=== PATIENT | female | born 1960 | race Caucasian/White ===

== ENCOUNTER 2020-11-25 10:17 | Outpatient (CLI) | payer OTHER ==
--- NOTE | 2020-11-25 10:42 | RAD ---
EXAM: 3 views of the left ankle HISTORY: Ankle pain COMPARISON: None FINDINGS: 3 views of the left ankle shows no evidence of acute fracture or dislocation. A well-cortic ated ossific fragment adjacent to the lateral malleolus is likely sequelae from remote trauma. Mild lateral soft tissue swelling is seen. No degenerative changes are present. IMPRESSION: No evidence of acute osseous abnormality.
== END 2020-11-25 10:18 | disposition home or self-care (01) ==
LOC: BICRAD 10:17
PROVIDERS: ATTEND Family Medicine
DX: M25.572 Pain in left ankle and joints of left foot (principal)

== ENCOUNTER 2021-07-19 17:57 | Observation (INO) | payer OTHER ==
[~2021-07-19 17:57] MED LIST: Iopamidol-370 76% 500 ML 1 ML ONE
[2021-07-19 18:53] LABS: #Basophils 0.1 thou/uL (0.0-0.2); #Eosinphils 0.1 thou/uL (0.0-0.7); #Lymphocytes 2.4 thou/uL (1.20-3.40); #Monocytes 0.7 thou/uL (0.11-0.59); #Neutrophils 4.3 thou/uL (1.40-6.50); %Basophils 0.8 % (0.0-1.0); %Eosinophils 1.7 % (0.0-10.0); %Lymphocytes 31.3 % (21.0-51.0); %Monocytes 9.4 % (0.0-10.0); %Neutrophils 56.9 % (42.0-75.0); Hemoglobin 13.2 g/dL (12.0-16.0); Mean Corpuscular HGB CONC 33.5 g/dL (32.0-36.0); Mean Corpuscular Hemoglobin 29.7 pg (27.0-31.0); Mean Corpuscular Volume 88.5 fL (78.0-98.0); Mean Platelet Volume 9.2 fL (7.4-10.4); Platelet Count 166 thou/uL (130-400); RBC Distribution Width 13.5 % (11.5-14.5); Red Blood Cell (RBC) Count 4.44 mill/uL (4.20-5.40); White Blood Cell (WBC) Count 7.6 thou/uL (4.8-10.8)
[2021-07-19 19:22] LABS: ALT (SGPT) 12 U/L (8-55); AST (SGOT) 16 U/L (5-34); Albumin 3.8 g/dL (3.4-4.8); Alkaline Phosphatase 65 U/L (40-110); Anion Gap 14 mmol/L (10-20); BUN (Urea Nitrogen) 17 mg/dL (9.8-20.1); Bilirubin, Total 0.6 mg/dL (0.2-1.2); Calc. Creatinine Clearance 0 mL/min (70-130); Calcium 9.3 mg/dL (7.8-10.44); Carbon Dioxide 23 mmol/L (23-31); Chloride 106 mmol/L (98-107); Glucose 149 mg/dL (80-115); Potassium 4.2 mmol/L (3.5-5.1); Protein, Total 6.8 g/dL (5.8-8.1); Sodium 139 mmol/L (136-145)
[2021-07-19] MEDS ORDERED: Aspirin Chewable 81 MG TAB ONE (20:19)
[2021-07-19] MEDS ORDERED: Nitroglycerin 2% Ointment 1 INCH/1 GM Packet ONE (21:54)
[2021-07-19 23:00] LABS: Troponin I Less than 0.010 ng/mL (< 0.028)
[2021-07-20] MEDS ORDERED: Ondansetron PF 4 MG/2 ML Vial IVP PRN ×2 (00:15→02:31)
[2021-07-20] MEDS ORDERED: Ondansetron ODT 4 MG TAB SL PRN (00:15)
[2021-07-20] MEDS ORDERED: Acetaminophen 325 MG TAB PO PRN ×2 (00:15→02:31)
[2021-07-20 02:13] LABS: Troponin I Less than 0.010 ng/mL (< 0.028)
[2021-07-20] MEDS ORDERED: Nitroglycerin 0.4 MG TAB (25 Tab Bottle) SL PRN (02:31)
[2021-07-20] MEDS ORDERED: hydrALAZINE 20 MG/ML VIAL SLOW IVP PRN (02:34)
[2021-07-20] MEDS ORDERED: Dextrose 5% in Water 1,000 ML IV PRN (03:46)
[2021-07-20] MEDS ORDERED: Dextrose 50% Abboject 50 ML SYRINGE SLOW IVP PRN (03:46)
[2021-07-20] MEDS ORDERED: HumaLOG 300 UNITS/3 ML VIAL SC PRN ×2 (03:46)
[2021-07-20 05:37] LABS: #Basophils 0.1 thou/uL (0.0-0.2); #Eosinphils 0.2 thou/uL (0.0-0.7); #Lymphocytes 2.4 thou/uL (1.20-3.40); #Monocytes 0.8 thou/uL (0.11-0.59); #Neutrophils 3.8 thou/uL (1.40-6.50); %Basophils 0.7 % (0.0-1.0); %Eosinophils 2.6 % (0.0-10.0); %Lymphocytes 33.1 % (21.0-51.0); %Monocytes 11.2 % (0.0-10.0); %Neutrophils 52.4 % (42.0-75.0); Hemoglobin 12.7 g/dL (12.0-16.0); Mean Corpuscular Hemoglobin 30.1 pg (27.0-31.0); Mean Corpuscular Volume 88.6 fL (78.0-98.0); Mean Platelet Volume 9.3 fL (7.4-10.4); Platelet Count 143 thou/uL (130-400); RBC Distribution Width 13.3 % (11.5-14.5); Red Blood Cell (RBC) Count 4.21 mill/uL (4.20-5.40); White Blood Cell (WBC) Count 7.2 thou/uL (4.8-10.8)
[2021-07-20 05:51] LABS: Anion Gap 14 mmol/L (10-20); BUN (Urea Nitrogen) 14 mg/dL (9.8-20.1); Calc. Creatinine Clearance 116 mL/min (70-130); Calcium 9.1 mg/dL (7.8-10.44); Carbon Dioxide 25 mmol/L (23-31); Cardiac Risk 3.8 (Less than 4.5); Chloride 107 mmol/L (98-107); Cholesterol 150 mg/dl (< 200 Desired); Glucose 93 mg/dL (80-115); HDL Cholesterol 40 mg/dL (>60 Neg Risk); LDL Cholesterol, Calculated 85 mg/dL; Potassium 4.5 mmol/L (3.5-5.1); Sodium 141 mmol/L (136-145); Triglycerides 123 mg/dL (Less than 150)
[2021-07-20] MEDS: Enoxaparin Sodium 40 MG/0.4 ML SYRINGE SC SCH (08:33)
[2021-07-20 12:39] LABS: SARS-CoV-2 PCR by NAA Not Detected (NotDetected)
[2021-07-21 06:08] VITALS: BMI 47.8
[2021-07-21 07:55] VITALS: TEMP 98.3
[2021-07-21] MEDS ORDERED: Aspirin 81 mg Enteric Coated Tablet PO SCH (09:00)
[2021-07-21] MEDS ORDERED: FLUoxetine HCl 20 MG CAP PO SCH (09:00)
[2021-07-21] MEDS ORDERED: Lisinopril 20 MG TAB PO SCH (09:00)
[2021-07-21] MEDS: Enoxaparin Sodium 40 MG/0.4 ML SYRINGE SC SCH (10:02)
[2021-07-21 15:44] VITALS: BP 101/64
[2021-07-21] MEDS ORDERED: Rosuvastatin 20 MG TAB PO SCH (21:00)
[2021-07-23] MEDS ORDERED: FLU VACC QS2021-22(6MOS UP)/PF 60 MCG/0.5 ML SYRINGE IM ONE (09:00)
== END 2021-07-21 18:10 | disposition home or self-care (01) ==
LOC: ERS 17:57 → 2SW 22:11
PROVIDERS: ADMIT Internal Medicine; ATTEND Internal Medicine Geriatric Medicine
DX: R07.89 Other chest pain (principal); R06.09 Other forms of dyspnea; E11.9 Type 2 diabetes mellitus without complications; I10 Essential (primary) hypertension; E78.5 Hyperlipidemia, unspecified; E66.9 Obesity, unspecified; Z68.42 Body mass index [BMI] 45.0-49.9, adult; Z87.891 Personal history of nicotine dependence; Z79.4 Long term (current) use of insulin; Z79.82 Long term (current) use of aspirin; Z79.84 Long term (current) use of oral hypoglycemic drugs; Z79.899 Other long term (current) drug therapy; Z20.822 Contact with and (suspected) exposure to COVID-19
CPT/HCPCS: 36415; 36416; 71045; 71275; 78452; 80048; 80053; 80061; 84443; 84484; 85025; 93005; 93017; 96372; A9500; G0378; J0153; J1650; Q9967; U0003; U0005

== ENCOUNTER 2022-01-19 07:43 | Outpatient (CLI) | payer OTHER | END 2022-01-19 07:44 | disposition home or self-care (01) | LOC: BICMAMMO 07:43 | PROVIDERS: ATTEND Family Medicine | DX: Z12.31 Encounter for screening mammogram for malignant neoplasm of breast (principal) | CPT/HCPCS: 77063; 77067 ==

== ENCOUNTER 2022-11-23 15:11 | Outpatient (CLI) | payer OTHER | END 2022-11-23 15:12 | disposition home or self-care (01) | LOC: BICRAD 15:11 | PROVIDERS: ATTEND Nurse Practitioner Family | DX: M25.521 Pain in right elbow (principal) ==

== ENCOUNTER 2022-12-06 08:10 | Outpatient (CLI) | payer OTHER | END 2022-12-06 08:11 | disposition home or self-care (01) | LOC: TBSIIMAG 08:10 | PROVIDERS: ATTEND Specialist | DX: M47.22 Other spondylosis with radiculopathy, cervical region (principal); M50.123 Cervical disc disorder at C6-C7 level with radiculopathy | CPT/HCPCS: 72141 ==

== ENCOUNTER 2023-05-26 15:23 | Outpatient (CLI) | payer BC ==
[2023-05-26 16:19] LABS: Hematocrit 41.5 % (34.9-44.5); Hemoglobin 13.4 g/dL (12.0-15.5); Mean Corpuscular HGB CONC 32.3 g/dL (32.0-36.0); Mean Corpuscular Hemoglobin 28.1 pg (27.0-33.0); Mean Platelet Volume 11.3 fl (7.4-10.4); Platelet Count 180 10x3/uL (150-450); RBC Distribution Width 14.2 % (11.5-14.5); Red Blood Cell (RBC) Count 4.77 10x6/uL (3.90-5.03); White Blood Cell (WBC) Count 7.9 10x3/uL (3.5-10.5)
[2023-05-26 16:28] LABS: PTT 27.8 sec (22.0-33.0)
[2023-05-26 16:34] LABS: Anion Gap 14 mmol/L (10-20); BUN (Urea Nitrogen) 14 mg/dL (9.8-20.1); Calc. Creatinine Clearance 0 mL/min (70-130); Calcium 9.4 mg/dL (7.8-10.44); Carbon Dioxide 23 mmol/L (23-31); Chloride 108 mmol/L (98-107); Estimated GFR 54; Glucose 82 mg/dL (80-115); Potassium 4.4 mmol/L (3.5-5.1); Sodium 141 mmol/L (136-145)
== END 2023-05-26 15:24 | disposition home or self-care (01) ==
LOC: LABBT 15:23
PROVIDERS: ATTEND Surgery
DX: Z01.812 Encounter for preprocedural laboratory examination (principal); M50.10 Cervical disc disorder with radiculopathy, unspecified cervical region
CPT/HCPCS: 80048; 85027; 85610; 85730; 93005; 93010

== ENCOUNTER 2023-05-30 05:59 | Observation (INO) | payer BC ==
[2023-05-26 16:11] VITALS: BMI 46.1
[2023-05-30] MEDS ORDERED: Midazolam HCl 2 mg/2 ml Vial ONE (06:31)
[2023-05-30] MEDS ORDERED: fentaNYL PF 100 MCG/2 ML SYRINGE ONE (06:31)
[2023-05-30] MEDS ORDERED: Thrombin 5000 UNITS/5 ML VIAL ONE (06:55)
[2023-05-30] MEDS ORDERED: Promethazine HCl 25 MG/ML VIAL IM PRN (06:56)
[2023-05-30] MEDS ORDERED: Ondansetron HCl/PF 4 MG/2 ML Vial IVP PRN (06:56)
[2023-05-30] MEDS ORDERED: HYDROmorphone 2 MG/ML VIAL SLOW IVP PRN (06:56)
[2023-05-30] MEDS ORDERED: Rocuronium Bromide 10 MG/ML (10ML VIAL) ONE (07:02)
[2023-05-30] MEDS ORDERED: Ondansetron PF 4 MG/2 ML Vial ONE (07:02)
[2023-05-30] MEDS ORDERED: PROPOFOL 200 MG/20 ML VIAL ONE (07:02)
[2023-05-30] MEDS ORDERED: PHENYLEPHRINE-NS 100 MCG/ML 10 ML SYRINGE ONE (07:02)
[2023-05-30] MEDS ORDERED: Lidocaine 1% PF 5 ML VIAL ONE (07:02)
[2023-05-30] MEDS ORDERED: Dexamethasone 20 MG/5 ML VIAL ONE (07:02)
[2023-05-30] MEDS ORDERED: CEFAZOLIN 2 GM VIAL ONE (07:16)
[2023-05-30] MEDS ORDERED: Sodium Chloride 0.9% 100 ML ONE (07:16)
[2023-05-30] MEDS ORDERED: SUGAMMADEX SODIUM 200 MG/2 ML VIAL ONE (09:45)
[2023-05-30] MEDS ORDERED: HYDROmorphone 2 MG/ML VIAL ONE (09:50)
[2023-05-30] MEDS ORDERED: Morphine 2 MG/ML VIAL SLOW IVP PRN (10:29)
[2023-05-30] MEDS ORDERED: traMADol HCl 50 MG TAB PO PRN ×2 (10:29)
[2023-05-30] MEDS ORDERED: Ondansetron PF 4 MG/2 ML Vial IVP PRN (10:29)
[2023-05-30] MEDS ORDERED: Acetaminophen 325 MG TAB PO PRN (10:29)
[2023-05-30] MEDS ORDERED: Ketorolac Tromethamine 30 MG/ML VIAL IVP PRN (10:34)
[2023-05-30] MEDS ORDERED: tiZANidine HCl 4 MG TAB PO PRN (10:34)
[2023-05-30] MEDS ORDERED: Benzocaine/Menthol 1 LOZ LOZ PO PRN (10:35)
[2023-05-30] MEDS ORDERED: Phenol 118 ML BOT PO PRN (10:35)
[2023-05-30] MEDS ORDERED: fentaNYL 50 mcg/mL 1 mL Vial ONE ×2 (10:44→11:04)
[2023-05-30] MEDS: CEFAZOLIN 2 GM in Sodium Chloride 0.9% 100 ML IVPB SCH ×2 (17:00→23:56)
[2023-05-30] MEDS: Sodium Chloride 0.9% 1,000 ML IV SCH (17:23)
[2023-05-30] MEDS: HYDROcodone/Acetaminophen 7.5/325 mg Tablet PO PRN (20:18)
[2023-05-30] MEDS ORDERED: Rosuvastatin 20 MG TAB PO SCH (21:00)
[2023-05-31] MEDS: Sodium Chloride 0.9% 1,000 ML IV SCH (00:01)
[2023-05-31] MEDS: CEFAZOLIN 2 GM in Sodium Chloride 0.9% 100 ML IVPB SCH ×2 (00:34→08:32)
[2023-05-31] MEDS ORDERED: metFORMIN 500 MG TAB PO SCH (08:00)
[2023-05-31] MEDS: HYDROcodone/Acetaminophen 7.5/325 mg Tablet PO PRN (08:32)
[2023-05-31] MEDS ORDERED: Insulin Glargine 30 UNITS/0.3 ML VIAL SC SCH (09:00)
[2023-05-31] MEDS ORDERED: FLUoxetine HCl 20 MG CAP PO SCH (09:00)
[2023-05-31 12:21] VITALS: BP 149/85; TEMP 97.5
== END 2023-05-31 12:16 | disposition home or self-care (01) ==
LOC: SDC 05:59 → SURG A 10:28
PROVIDERS: ADMIT Surgery; ATTEND Surgery
PROC: 0RG2070 Fusion of 2 or more Cervical Vertebral Joints with Autologous Tissue Substitute, Anterior Approach, Anterior Column, Open Approach (ICD-10-PCS; principal; 2023-05-30)
PROC: 0RG20A0 Fusion of 2 or more Cervical Vertebral Joints with Interbody Fusion Device, Anterior Approach, Anterior Column, Open Approach (ICD-10-PCS; 2023-05-30)
PROC: 0RG40A0 Fusion of Cervicothoracic Vertebral Joint with Interbody Fusion Device, Anterior Approach, Anterior Column, Open Approach (ICD-10-PCS; 2023-05-30)
DX: M50.13 Cervical disc disorder with radiculopathy, cervicothoracic region (principal); M48.02 Spinal stenosis, cervical region
CPT/HCPCS: 36416; 96365; 96375; 96376; C1713; G0378; J1100; J1170; J1815; J1885; J2250; J2405; J2704; J3010; J3490